=== PATIENT | female | born 1970 | race African-American/Black ===

== ENCOUNTER 2016-12-24 00:57 | Emergency (ER) | payer MEDICAID ==
[~2016-12-24] VITALS: Ht 170.2 cm; Wt 86.6 kg
[2016-12-24 01:24] LABS: Urine RBC None Seen /hpf (0 - 4)
[2016-12-24 01:27] LABS: Basophils # (auto) 0.1 uL; Basophils % (auto) 0.5 % (0.0-2.0); CONDITION Y; Eosinophils # (auto) 0.4 uL; Eosinophils % (auto) 3.9 % (0.0-7.0); Hematocrit 38.3 % (36.0-46.0); Hemoglobin 12.5 g/dL (12.2-16.2); Lymphocytes # (auto) 2.7 uL; Lymphocytes % (auto) 26.3 % (10.0-50.0); Mean Corpuscular Hgb Conc. 32.7 g/dL (32.0-36.0); Mean Corpuscular Volume 85.7 fL (80.0-100.0); Mean Platelet Volume 8.2 fL (7.4-10.4); Monocytes % (auto) 10.1 % (0.0-12.0); Neutrophils % (auto) 59.2 % (37.0-80.0); Platelet Count (auto) 421 10^3/uL (140-450); Red Cell Distribution Width 14.4 % (11.6-16.0); White Blood Cell 10.1 10^3/uL (4.4-10.8)
[2016-12-24 01:32] LABS: Urine Bilirubin Negative (Negative); Urine Blood Negative /uL (Negative); Urine Color Colorless (Yellow); Urine Glucose Normal (Normal); Urine Ketone Negative (Negative); Urine Nitrite Negative (Negative); Urine Urobilinogen Normal (Negative); Urine pH 6.5 (5.0-8.0)
[2016-12-24 01:46] LABS: Albumin 3.5 g/dL (3.4-5.0); Anion Gap 9 (5-15); Aspartate Aminotransferase 22 U/L (15-37); BUN/Creatinine Ratio 8.8; Blood Urea Nitrogen 5 mg/dL (7-18); Calcium 8.7 mg/dL (8.5-10.1); Carbon Dioxide 29 mmol/L (21-32); Chloride 102 mmol/L (98-107); GFR African American 146 mL/min; GFR Non-African American 121 mL/min; Glucose 100 mg/dL (74-106); Magnesium 2.2 mg/dL (1.6-2.6); Potassium 3.4 mmol/L (3.5-5.1); Sodium 140 mmol/L (136-145)
[2016-12-24 01:51] LABS: Alkaline Phosphatase 105 U/L (45-117); Bilirubin, Total 0.3 mg/dL (0.2-1.0); Total Protein 7.8 g/dL (6.4-8.2)
[2016-12-24 01:58] LABS: B-Type Natriuretic Peptide < 5 pg/mL (0-100); Temperature: 22.9 C (20.0-25.0)
[2016-12-24 03:04] VITALS: BP 121/77
== END 2016-12-24 05:16 | disposition home or self-care (01) ==
LOC: ER 00:59
DX: M54.12 Radiculopathy, cervical region (principal); F41.1 Generalized anxiety disorder; F32.9 Major depressive disorder, single episode, unspecified
CPT/HCPCS: 36415; 80053; 80307; 81001; 83735; 83880; 84484; 85025; 93005

== ENCOUNTER 2017-09-07 21:16 | Emergency (ER) | payer MEDICAID ==
[~2017-09-07] VITALS: Ht 170.2 cm; Wt 82.1 kg
[2017-09-08 01:18] VITALS: BP 121/81
== END 2017-09-08 03:00 | disposition home or self-care (01) ==
LOC: ER 21:16
DX: M54.12 Radiculopathy, cervical region (principal); Z88.1 Allergy status to other antibiotic agents
CPT/HCPCS: 73030

== ENCOUNTER 2017-11-28 13:27 | Emergency (ER) | payer MEDICAID ==
[~2017-11-28] VITALS: Ht 170.2 cm; Wt 83.9 kg
[2017-11-28 13:36] VITALS: BP 130/74
== END 2017-11-28 16:02 | disposition home or self-care (01) ==
LOC: ER 13:27
DX: L03.112 Cellulitis of left axilla (principal); Z88.1 Allergy status to other antibiotic agents

== ENCOUNTER 2019-09-17 17:34 | Emergency (ER) | payer MEDICAID ==
[~2019-09-17] VITALS: Ht 170.2 cm; Wt 88.9 kg
[2019-09-17 17:46] VITALS: BP 142/86
[2019-09-17 18:12] LABS: Urine Bacteria FEW /hpf (None Seen); Urine Blood Negative /uL (Negative); Urine Specific Gravity 1.007 (1.001-1.035); Urine WBC 9 /hpf (0 - 5)
[2019-09-17] MEDS ORDERED: cefTRIAXone SOD 1,000 MG VL IM ONE (19:30)
== END 2019-09-17 21:01 | disposition home or self-care (01) ==
LOC: ER 17:35
DX: N39.0 Urinary tract infection, site not specified (principal); Z88.1 Allergy status to other antibiotic agents
CPT/HCPCS: 81001; 96372; 99283; J0696

== ENCOUNTER 2020-11-06 10:28 | Emergency (ER) | payer MEDICAID ==
[~2020-11-06] VITALS: Ht 170.2 cm; Wt 86.6 kg
[2020-11-06 10:39] VITALS: BP 124/76
[2020-11-06] MEDS ORDERED: ONDANSETRON ODT 4 MG TAB PO ONE (11:00)
[2020-11-06] MEDS ORDERED: ACETAMINOPHEN 325 MG TAB PO ONE (11:00)
[2020-11-06 11:08] LABS: Urine Bacteria FEW /hpf (None Seen); Urine Blood Negative /uL (Negative); Urine Mucus FEW (None Seen); Urine Specific Gravity 1.018 (1.001-1.035); Urine WBC 3 /hpf (0 - 5)
[2020-11-06 11:08] LABS: Basophils # (auto) 0.1 10 ^3/uL (0-0.2); Basophils % (auto) 0.6 % (0.0-2.0); Eosinophils # (auto) 0.3 10 ^3/uL (0-0.8); Eosinophils % (auto) 3.6 % (0.0-7.0); Hematocrit 40.2 % (36.0-46.0); Hemoglobin 13.2 g/dL (12.2-16.2); Lymphocytes # (auto) 2.2 10 ^3/uL (0.4-5.4); Lymphocytes % (auto) 24.1 % (10.0-50.0); Mean Corpuscular Hemoglobin 28.3 pg (28.0-32.0); Mean Corpuscular Hgb Conc. 32.8 g/dL (32.0-36.0); Mean Corpuscular Volume 86.2 fL (80.0-100.0); Monocytes # (auto) 0.6 10 ^3/uL (0-1.3); Monocytes % (auto) 6.1 % (0.0-12.0); Neutrophils % (auto) 65.6 % (37.0-80.0); Nucleated Red Blood Cells % 0.2 %; Platelet Count (auto) 309 10^3/uL (140-450); Red Blood Cells 4.66 10^6/uL (4.0-5.20); Red Cell Distribution Width 14.3 % (11.8-14.3); White Blood Cell 9.2 10^3/uL (4.4-10.8)
[2020-11-06 11:23] LABS: Albumin 3.6 g/dL (3.4-5.0); Anion Gap 3 (5-15); Blood Urea Nitrogen 9 mg/dL (7-18); Calcium 9.3 mg/dL (8.5-10.1); Carbon Dioxide 32 mmol/L (21-32); Chloride 104 mmol/L (98-107); Glucose 131 mg/dL (74-106); Potassium 3.8 mmol/L (3.5-5.1); Sodium 139 mmol/L (136-145)
[2020-11-06 11:29] LABS: Alanine Aminotransferase 38 U/L (13-56); Alkaline Phosphatase 99 U/L (45-117); Aspartate Aminotransferase 26 U/L (15-37); Bilirubin, Total 0.3 mg/dL (0.2-1.0); GFR African American 136 mL/min; GFR Non-African American 112 mL/min; Total Protein 7.9 g/dL (6.4-8.2)
== END 2020-11-06 12:22 | disposition home or self-care (01) ==
LOC: ER 10:28
DX: I16.0 Hypertensive urgency (principal); E11.9 Type 2 diabetes mellitus without complications; E78.5 Hyperlipidemia, unspecified; Z90.710 Acquired absence of both cervix and uterus; Z88.1 Allergy status to other antibiotic agents
CPT/HCPCS: 36415; 70450; 80053; 81001; 84484; 85025; 93005; 99285; Q0162

== ENCOUNTER 2022-07-28 05:21 | Emergency (ER) | payer MEDICAID ==
[~2022-07-28] VITALS: Ht 170.2 cm; Wt 90.0 kg
[2022-07-28] MEDS ORDERED: DICYCLOMINE HCL 10 MG CAP PO ONE (06:30)
[2022-07-28 06:40] LABS: Basophils # (auto) 0 10 ^3/uL (0-0.2); Basophils % (auto) 0.3 % (0.0-2.0); Eosinophils # (auto) 0.1 10 ^3/uL (0-0.8); Eosinophils % (auto) 0.9 % (0.0-7.0); Hematocrit 40.1 % (36.0-46.0); Hemoglobin 13.1 g/dL (12.2-16.2); Lymphocytes # (auto) 1.9 10 ^3/uL (0.4-5.4); Mean Corpuscular Hemoglobin 27.7 pg (28.0-32.0); Mean Corpuscular Hgb Conc. 32.8 g/dL (32.0-36.0); Mean Corpuscular Volume 84.4 fL (80.0-100.0); Monocytes # (auto) 0.6 10 ^3/uL (0-1.3); Monocytes % (auto) 6.4 % (0.0-12.0); Neutrophils # (auto) 6.9 10 ^3/uL (1.6-8.6); Neutrophils % (auto) 72.4 % (37.0-80.0); Red Blood Cells 4.75 10^6/uL (4.0-5.20); Red Cell Distribution Width 14.5 % (11.8-14.3); White Blood Cell 9.6 10^3/uL (4.4-10.8)
[2022-07-28 06:41] LABS: Urine Bacteria MOD /hpf (None Seen); Urine Blood Negative /uL (Negative); Urine Mucus FEW (None Seen); Urine Specific Gravity 1.011 (1.001-1.035); Urine WBC 6 /hpf (0 - 5)
[2022-07-28 06:52] LABS: Albumin 3.8 g/dL (3.4-5.0); Potassium 3.5 mmol/L (3.5-5.1)
[2022-07-28 06:55] LABS: BUN/Creatinine Ratio 7.9; Bilirubin, Total 0.4 mg/dL (0.2-1.0); Total Protein 7.6 g/dL (6.4-8.2)
[2022-07-28] MEDS ORDERED: HYDROcodone-ACET 10/325MG TAB PO ONE (07:45)
[2022-07-28] MEDS ORDERED: HYDROmorphone HCL 2 MG/ML VL/or syr IM ONE (08:30)
[2022-07-28 08:41] VITALS: BP 122/74
[2022-07-28] MEDS ORDERED: PHENSUP38 PR (10:01)
[2022-07-28] MEDS ORDERED: DOCU-94 PO (10:52)
[2022-07-29 08:44] LABS: Hepatitis B Surface Antibody Negative (Negative)
[2022-07-29 09:21] LABS: Hepatitis A Total Antibody Negative (Negative)
[2022-07-29 09:59] LABS: Hepatitis C Antibody Negative (Negative)
== END 2022-07-28 10:09 | disposition home or self-care (01) ==
LOC: ER 05:21
DX: K76.0 Fatty (change of) liver, not elsewhere classified (principal); M54.50 Low back pain, unspecified; E11.9 Type 2 diabetes mellitus without complications; E78.5 Hyperlipidemia, unspecified; Z90.710 Acquired absence of both cervix and uterus; Z88.1 Allergy status to other antibiotic agents
CPT/HCPCS: 36415; 74176; 80053; 81001; 83690; 85025; 86704; 86706; 86708; 86803; 87340; 96372; 99285; J0500; J1170

== ENCOUNTER 2024-11-05 13:21 | Emergency (ER) | payer MEDICAID, OTHER ==
[~2024-11-05] VITALS: Ht 170.2 cm; Wt 83.3 kg
[~2024-11-05 13:21] MED LIST: DOCU-94 PO; PHENSUP38 PR
[2024-11-05 14:06] VITALS: BP 127/49; PULSE 65; RESP 17; TEMP 97.9; O2SAT 96
--- NOTE | 2024-11-05 14:22 | ED.PDOC ---
Musculoskeletal HPI Comments A 54 YEAR OLD FEMALE PRESENTS TO THE ED WITH COMPLAINT OF LEFT SHOULDER PAIN. PATIENT STATES SHE HAS BEEN EXPERIENCING LEFT SHOULDER PAIN THAT IS WORSE WITH MOVEMENT OFF AND ON FOR THE PAST 6 MONTHS WITH WORSENING PAIN TODAY. PATIENT DENIES INJURY TO THE AFFECTED AREA, FEVER, CHILLS, SHORTNESS OF BREATH, CHEST PAIN, ABDOMINAL PAIN, NAUSEA, VOMITING, HEADACHE, OR OTHER COMPLAINTS. NO OTHER SYMPTOMS OR MODIFYING FACTORS AT THIS TIME. PATIENT IS ALERT, ORIENTED X 4, AND HAS STEADY GAIT. Chief Complaint: Upper Extremity Time Seen by MD: 13:48 Primary Care Provider: SHENA Joya Notes: Nurses Notes, Medications, Allergies Allergies: Coded Allergies: Amoxicillin (Verified Allergy, Unknown, 12/24/16) Home Meds Active Scripts Docusate Sodium (Colace) 100 Mg Cap, 1 CAP PO BID, #30 CAP Prov:HONG VARELA PAC 07/28/22 Phenylephrine-Shark Liver Oil- (Hemorrhoidal Suppositorie 0.25-3-85.5 %) 1 Sup Sup, 1 SUP PA TID, #20 SUPP Prov:HONG VARELA PAC 07/28/22 Information Source: Patient Mode of Arrival: Ambulatory Location: Left Extremity Location: Shoulder Timing: Months Prehospital treatment: None Severity: Moderate Able to Move Extremity: Yes Bear Weight: Fully Pain: Moderate Mechanism: No Trauma, Spontaneous Circumstances: Spontaneous Onset of Symptoms: Spontaneous Symptoms: Pain DVT Risk Factors: NONE Last Tetanus: Unknown Associated signs and symptoms: Shoulder pain Past Medical History PAST MEDICAL HISTORY: DM, High Lipids Past Medical History (Other): CHRONIC LOW BACK PAIN Surgical History: Hysterectomy AMF MECHANIC History: No Pertinent AMF MECHANIC History Family History Family History: Reviewed,noncontributory to illness, Family hx of DM, Family hx of heart sky, Family hx of HTN Social History Smoker: Non-Smoker Alcohol: Denies ETOH Use Drugs: Denies Drug Use Lives In: Home Constitutional: denies: chills, diaphoresis, fatigue, fever, malaise, sweats, weakness, others EENTM: denies: blurred vision, double vision, ear bleeding, ear discharge, ear drainage, ear pain, ear ringing, eye pain, eye redness, hearing loss, mouth pain, mouth swelling, nasal discharge, nose bleeding, nose congestion, nose pain, photophobia, tearing, throat pain, throat swelling, voice changes, others Respiratory: denies: cough, hemoptysis, orthopnea, SOB at rest, shortness of breath, SOB with excertion, stridor, wheezing, others Cardiovascular: denies: chest pain, dizzy spells, diaphoresis, Dyspnea on exertion, edema, irregular heart beat, left arm pain, lightheadedness, palpitations, PND, syncope, others Gastrointestinal: denies: abdomen distended, abdominal pain, blood streaked bowels, constipated, diarrhea, dysphagia, difficulty swallowing, hematemesis, melena, nausea, poor appetite, poor fluid intake, rectal bleeding, rectal pain, vomiting, others Genitourinary: denies: abnormal vagina bleeding, burning, dyspareunia, dysuria, flank pain, frequency, hematuria, incontinence, pain, , vagina discharge, urgency, others Neurological: denies: dizziness, fainting, headache, left sided numbness, left sided weakness, numbness, paresthesia, pre-existing deficit, right sided numbness, right sided weakness, seizure, speech problems, tingling, tremors, weakness, others Musculoskeletal: reports: joint pain, muscle pain, others (LEFT SHOULDER PAIN); denies: back pain, gout, joint swelling, muscle stiffness, neck pain Integumetry: denies: bruises, change in color, change in hair/nails, dryness, laceration, lesions, lumps, rash, wounds, others Allergic/Immunocompromised: denies: Difficulty Healing, Frequent Infections, Hives, Itching, others Hematologic/Lymphatic: denies: anemia, blood clots, easy bleeding, easy bruising, swollen glands, others Endocrine: denies: excessive hunger, excessive sweating, excessive thirst, excessive urination, flushing, intolerance to cold, intolerance to heat, unexplained weight gain, unexplained weight loss, others Psychiatric: denies: anxiety, bipolar disorder, depression, hopeless, panic disorder, schizophrenia, sleepless, suicidal, others All Other Systems: Reviewed and Negative Physical Exam General Appearance: No Apparent Distress, Normal HEENT: Normal ENT Inspection, PERRL/EOMI, Pharynx Normal, TMs Normal Neck: Full Range of Motion, Non-Tender, Normal, Normal Inspection Respiratory: Chest Non-Tender, Lungs Clear, No Accessory Muscle Use, No Respiratory Distress, Normal Breath Sounds Cardiovascular: No Edema, No JVD, No Murmur, No Gallop, Normal Peripheral Pulses, Regular Rate/Rhythm Breast Exam: Deferred Gastrointestinal: No Organomegaly, Non Tender, No Pulsatile Mass, Normal Bowel Sounds, Soft Genitalia: Deferred Pelvic: Deferred Rectal: Deferred Extremities: Decreased range of motion, No calf tenderness, Normal capillary refill, Normal inspection, No pedal edema, Tender (ON LEFT SHOULDER, NO BONY TENDERNESS, SWELLING AND DEFOERMITY. ) Musculoskeletal : Apperance: Normal Neurologic: Alert, bank vault attendant II-XII nml as Tested, No Motor Deficits, Normal Affect, Normal Mood, No Sensory Deficits Cerebellar Function: Normal Reflexes: Normal Skin: Dry, Normal Color, Warm Peripheral Pulses: 2+ carotid (R), 2+ carotid (L) Lymphatic: No Adenopathy Was a procedure done? Was a procedure done?: No Differential Diagnosis EXT Differential Diagnosis: Sprain, DJD, Strain, Arthritis, Bursitis X-Ray, Labs, Meds, VS Vital Signs Date Time Temp Pulse Resp B/P (MAP) Pulse Ox O2 Delivery O2 Flow Rate FiO2 11/05/24 14:06 97.9 65 17 127/49 (75) 96 97.9 11/05/24 14:06 65 17 96 Room Air 11/05/24 13:57 97.9 65 17 127/49 (75) 96 97.9 X-Ray, Labs, Meds, VS Comment EXTERNAL MEDICAL RECORDS REVIEWED: [NONE] INDEPENDENT HISTORIANS: [NONE] SOCIAL DETERMINANTS OF HEALTH: [NONE] LABS ORDERED: NONE REVIEWED AND INTERPRETED RESULTS: NONE IMAGING ORDERED: XR SHOULDER LT: [INTERPRETED BY ME. NO ACUTE FINDINGS. NO FRACTURES OR DISLOCATION. PENDING RADIOLOGIST REPORT.] TREATMENTS ORDERED: NONE PROCEDURES PERFORMED: NONE CRITICAL CARE TIME: NONE I HAVE DISCUSSED THE PATIENT WITH THE ATTENDING PHYSICIAN DR. HEIN AND HE AGREES WITH THE PATIENT'S PLAN OF CARE AND DISPOSITION. BASED ON HISTORY OF PRESENT ILLNESS, AND PHYSICAL EXAM, PATIENT WILL BE DISCHARGED HOME. PT HAS MORPHINE MEDICATION AT HOME. SHARED DECISION MAKING: PATIENT INSTRUCTED TO FOLLOW UP WITH PRIMARY CARE PROVIDER IN 1-2 DAYS FOR RE-EVALUATION OF SYMPTOMS. PATIENT VERBALIZES UNDERSTANDING TO RETURN TO ED FOR NEW OR WORSENING SYMPTOMS OR IF FOLLOW UP WITH PCP CANNOT BE OBTAINED. PATIENT FEELS COMFORTABLE GOING HOME AT THIS TIME. ALL QUESTIONS ADDRESSED AT TIME OF DISCHARGE. Images Reviewed?: Images reviewed and evaluated by me Time of 1ST Reevaluation: 14:44 Reevaluation 1ST: Improved Patient Education/Counseling: Diagnosis, Treatment, Need For Follow Up Family Education/Counseling: Diagnosis, Treatment, Need For Follow Up Medical Screening: No EMC Exist At This Time Departure 1 Departure Time of Disposition: 14:45 Impression: Primary Impression: Tendinitis of left shoulder Disposition: 01 HOME / SELF CARE / HOMELESS Condition: Stable Additional Instructions: FOLLOW-UP WITH PCP IN 1 TO 2 DAYS. RETURN TO ED FOR ANY NEW OR WORSENING SYMPTOMS. Discharged With: Self Critical Care Note Critical Care Time?: No Stability Stability form required: No I personally scribed for YOLIS MEJIAS ([email or web address]) on 11/05/24 at 14:22. Electronically submitted by Mario Marin ([email or web address]). I personally scribed for YOLIS MEJIAS ([email or web address]) on 11/05/24 at 14:37. Electronically submitted by Mario Marin ([email or web address]). YOLIS MEJIAS November 05, 2024 14:22
--- NOTE | 2024-11-05 15:17 | DVH ---
EXAM: XR Left Shoulder Complete, 2 or More Views CLINICAL INDICATION: PAIN, NO INJURY TECHNIQUE: Two or more views of the left shoulder. COMPARISON: None FINDINGS: BONES/JOINTS: Small calcific density adjacent to the greater tuberosity could be tendinopathy or av ulsion fracture. Correlation with point tenderness is recommended. No dislocation. SOFT TISSUES: Unremarkable. OTHER FINDINGS: . IMPRESSION: Small calcific density adjacent to the greater tuberosity could be tendinopathy or avulsion fracture . Correlation with point tenderness is recommended.
[2024-11-06] MEDS ORDERED: TIZA-142 PO (06:06)
[2024-11-06] MEDS ORDERED: METH4PAK PO (06:06)
== END 2024-11-05 14:38 | disposition home or self-care (01) ==
LOC: ER 13:21
DX: M77.8 Other enthesopathies, not elsewhere classified (principal); E11.9 Type 2 diabetes mellitus without complications; E78.5 Hyperlipidemia, unspecified; G89.29 Other chronic pain; Z90.710 Acquired absence of both cervix and uterus; Z88.1 Allergy status to other antibiotic agents
CPT/HCPCS: 73030

== ENCOUNTER 2024-11-06 03:42 | Emergency (ER) | payer OTHER ==
[~2024-11-06] VITALS: Ht 170.2 cm; Wt 82.2 kg
--- NOTE | 2024-11-06 04:32 | ED.PDOC ---
Back pain HPI HPI Comments Pt presents to the ER due to lft shoulder pain. Pt states she was seen on 11/05/24 at this facility and states she was discharged with diagnosis of tendonitis. Pt requesting to have MRI done, pt educated on process of MRI referrals. Pt reports she was seeing a specialist x1 year ago for shoulder pain and receiving Cortisone shots. Pt states sudden onset of pain that she rates as being 10/10. Denies taking any home medications for pain. CSM intact, imited ROM. Chief Complaint: Upper Extremity Time Seen by MD: 04:27 Primary Care Provider: Dr. Adams Reviewed Notes: Nurses Notes, Medications, Allergies Allergies: Coded Allergies: Amoxicillin (Verified Allergy, Unknown, 12/24/16) Home Meds Active Scripts Methylprednisolone (Medrol Dosepak) 4 Mg Joaquin, 4 MG PO UD for 6 Days, #21 TAB UAD Prov:JENISE COSTA [facility] 11/06/24 Tizanidine Hydrochloride (Tizanidine Hcl) 4 Mg Tab, 4 MG PO HS PRN for 6 Days, #6 TAB Prov:JENISE COSTA [employer] 11/06/24 Docusate Sodium (Colace) 100 Mg Cap, 1 CAP PO BID, #30 CAP Prov:HONG VARELA PAC 07/28/22 Phenylephrine-Shark Liver Oil- (Hemorrhoidal Suppositorie 0.25-3-85.5 %) 1 Sup Sup, 1 SUP RI TID, #20 SUPP Prov:HONG VARELA PAC 07/28/22 Mode of Arrival: Ambulatory Past Medical History PAST MEDICAL HISTORY: DM, High Lipids Surgical History: Hysterectomy PEDIATRIC ACUTE CARE UNIT NURSE History: No Pertinent PEDIATRIC ACUTE CARE UNIT NURSE History Family History Family History: Reviewed,noncontributory to illness, Family hx of DM, Family hx of heart sky, Family hx of HTN Social History Smoker: Non-Smoker Alcohol: Denies ETOH Use Drugs: Denies Drug Use Lives In: Home Constitutional: denies: chills, diaphoresis, fatigue, fever, malaise, sweats, weakness, others EENTM: denies: blurred vision, double vision, ear bleeding, ear discharge, ear drainage, ear pain, ear ringing, eye pain, eye redness, hearing loss, mouth pain, mouth swelling, nasal discharge, nose bleeding, nose congestion, nose pain, photophobia, tearing, throat pain, throat swelling, voice changes, others Respiratory: denies: cough, hemoptysis, orthopnea, SOB at rest, shortness of breath, SOB with excertion, stridor, wheezing, others Cardiovascular: denies: chest pain, dizzy spells, diaphoresis, Dyspnea on exertion, edema, irregular heart beat, left arm pain, lightheadedness, pal pitations, PND, syncope, others Gastrointestinal: denies: abdomen distended, abdominal pain, blood streaked bowels, constipated, diarrhea, dysphagia, difficulty swallowing, hematemesis, melena, nausea, poor appetite, poor fluid intake, rectal bleeding, rectal pain, vomiting, others Genitourinary: denies: abnormal vagina bleeding, burning, dyspareunia, dysuria, flank pain, frequency, hematuria, incontinence, pain, , vagina discharge, urgency, others Neurological: denies: dizziness, fainting, headache, left sided numbness, left sided weakness, numbness, paresthesia, pre-existing deficit, right sided numbness, right sided weakness, seizure, speech problems, tingling, tremors, weakness, others Musculoskeletal: reports: joint pain (LEFT SHOULDER ); denies: back pain, gout, joint swelling, muscle pain, muscle stiffness, neck pain, others Integumetry: denies: bruises, change in color, change in hair/nails, dryness, laceration, lesions, lumps, rash, wounds, others Allergic/Immunocompromised: denies: Difficulty Healing, Frequent Infections, Hives, Itching, others Hematologic/Lymphatic: denies: anemia, blood clots, easy bleeding, easy bruising, swollen glands, others Endocrine: denies: excessive hunger, excessive sweating, excessive thirst, excessive urination, flushing, intolerance to cold, intolerance to heat, unexpla ined weight gain, unexplained weight loss, others Psychiatric: denies: anxiety, bipolar disorder, depression, hopeless, panic disorder, schizophrenia, sleepless, suicidal, others Physical Exam General Appearance: No Apparent Distress, Normal HEENT: Pharynx Normal Neck: Full Range of Motion, Non-Tender Respiratory: Lungs Clear, No Respiratory Distress, Normal Breath Sounds Cardiovascular: No Murmur, Normal Peripheral Pulses, Regular Rate/Rhythm Breast Exam: Deferred Gastrointestinal: Non Tender, Soft Genitalia: Deferred Pelvic: Deferred Rectal: Deferred Extremities: Normal capillary refill, Normal inspection, Normal range of motion, Non-tender, No pedal edema Musculoskeletal : Location: Left Extremity Location: Shoulder (MODERATE TENDERNESS PALPATED OVER SHOULDER GIRDLE STRENGTH SENSORY MOTION INTACT FULL RANGE OF MOTION WITH MODERATE DISCOMFORT POSITIVE RADIAL PULSE) Apperance: Normal Neurologic: Alert, deputy commonwealth's attorney II-XII nml as Tested, No Motor Deficits, Normal Affect, Normal Mood, No Sensory Deficits Cerebellar Function: Normal Reflexes: Normal Skin: Dry, Normal Color, Warm Lymphatic: No Adenopathy Was a procedure done? Was a procedure done?: No Back Pain Differential Dx Differential Diagnosis: Fracture, Musculoskeletal Pain X-Ray, Labs, Meds, VS Vital Signs Date Time Temp Pulse Resp B/P (MAP) Pulse Ox O2 Delivery O2 Flow Rate FiO2 11/06/24 05:21 98.5 52 16 125/70 (88) 98 98.5 11/06/24 04:52 97.4 64 18 139/58 (85) 97 97.4 11/06/24 04:52 64 18 97 Room Air 11/06/24 04:05 97.4 64 18 139/58 (85) 97 97.4 Current Medications Medications (Trade) Dose Ordered Sig/[place] Start Time Stop Time Status Last Admin Ketorolac Tromethamine (Toradol Injection) 60 mg ONCE ONCE IM 11/06/24 04:45 11/06/24 04:46 DC 11/06/24 05:23 Dexamethasone Sodium Phosphate (Decadron Injection) 10 mg ONCE ONCE IM 11/06/24 04:45 11/06/24 04:46 DC 11/06/24 05:21 X-Ray, Labs, Meds, VS Comment This patient was signed out to me at the end of shift. Patient with history of pain in the shoulder questionable fracture on x-ray. CT does not show any avulsion fracture at this time. Patient will be sent home on muscle relaxers and steroids. Encouraged to follow up with her primary care doctor for physical therapy if indicated. HISTORY: xRAY RESULT TENDONITIS vs AVULSION FX SEVERE PAIN COMPARISON: 11/05/2024 TECHNIQUE: Noncontrast axial CT images of the left shoulder were performed. Sagittal and coronal reformatted images were obtained. This CT exam was performed using one or more of the following dose reduction techniques: Automated exposure control, adjustment of the mA and/or kV according to patient size, or use of iterative reconstruction technique. FINDINGS: No acute fracture or dislocation are identified about the left shoulder. No significant degenerative changes. Subacromial space is maintained. Previously noted small calcific density is within the tendon and does not represent avulsion fracture. Mild degenerative changes of the glenohumeral joint with joint space narrowing and inferior spurring. IMPRESSION: 1. Previously noted small calcific density is within the tendon and does not represent avulsion fracture. Mild degenerative changes of the glenohumeral joint with joint space narrowing and inferior spurring. Time of 1ST Reevaluation: 04:20 Reevaluation 1ST: Unchanged Time of 2ND Reevaluation: 06:44 Reevaluation 2ND: Improved Patient Education/Counseling: Diagnosis, Treatment, Prognosis, Need For Follow Up Family Education/Counseling: No Family Present Departure 1 Departure Time of Disposition: 06:45 Impression: Primary Impression: Tendinitis of left shoulder Disposition: 01 HOME / SELF CARE / HOMELESS Condition: Stable e-Prescriptions Methylprednisolone (Medrol Dosepak) 4 Mg Joaquin 4 MG PO UD for 6 Days, #21 TAB UAD Prov: JENISE COSTA [facility] 11/06/24 Tizanidine Hydrochloride (Tizanidine Hcl) 4 Mg Tab 4 MG PO HS PRN for 6 Days, #6 TAB Prov: JENISE COSTA [facility] 11/06/24 Discharged With: Self Critical Care Note Critical Care Time?: No Stability Stability form required: No JENISE COSTA [facility] November 06, 2024 04:[address] [facility] November 06, 2024 06:45
[2024-11-06 05:21] VITALS: BP 125/70; PULSE 52; RESP 16; TEMP 98.5; O2SAT 98
[2024-11-06] MEDS: DexAMETHasone SOD PHOS 10MG/1ML VIAL INJ IM ONE (05:21)
[2024-11-06] MEDS: KETOROLAC TROMETH 60MG/2ML VIAL IM ONE (05:23)
[2024-11-06] MEDS ORDERED: TIZA-142 PO (06:06)
[2024-11-06] MEDS ORDERED: METH4PAK PO (06:06)
--- NOTE | 2024-11-06 06:37 | DVH ---
EXAM: CT CT L SHOULDER WO CONTRAST HISTORY: xRAY RESULT TENDONITIS vs AVULSION FX SEVERE PAIN COMPARISON: 11/05/2024 TECHNIQUE: Noncontrast axial CT images of the left shoulder were performed. Sagittal and coronal refo rmatted images were obtained. This CT exam was performed using one or more of the following dose redu ction techniques: Automated exposure control, adjustment of the mA and/or kV according to patient siz e, or use of iterative reconstruction technique. FINDINGS: No acute fracture or dislocation are identified about the left shoulder. No significant deg enerative changes. Subacromial space is maintained. Previously noted small calcific density is within the tendon and does not represent avulsion fracture. Mild degenerative changes of the glenohumeral j oint with joint space narrowing and inferior spurring. IMPRESSION: 1. Previously noted small calcific density is within the tendon and does not represent avulsion fract ure. Mild degenerative changes of the glenohumeral joint with joint space narrowing and inferior spur ring.
== END 2024-11-06 06:48 | disposition home or self-care (01) ==
LOC: ER 03:42
DX: M75.92 Shoulder lesion, unspecified, left shoulder (principal); E11.9 Type 2 diabetes mellitus without complications; E78.5 Hyperlipidemia, unspecified; Z90.710 Acquired absence of both cervix and uterus; Z88.0 Allergy status to penicillin
CPT/HCPCS: 73200; 96372; 99285; J1100; J1885

== ENCOUNTER 2025-05-12 10:37 | Emergency (ER) | payer OTHER ==
[~2025-05-12] VITALS: Ht 170.2 cm; Wt 79.1 kg
[2025-05-12 10:55] VITALS: BP 132/82; PULSE 79; RESP 16; TEMP 98.4; O2SAT 100
--- NOTE | 2025-05-12 11:00 | ED.PDOC ---
Musculoskeletal HPI Comments A 55 YEAR OLD FEMALE PRESENTS TO THE ED WITH COMPLAINT OF LEFT ANKLE PAIN AND SWELLING. PATIENT STATES SHE ACCIDENTALLY ROLLED HER LEFT ANKLE AT A [place] 6 DAYS AGO. PATIENT REPORTS SHE HAS BEEN EXPERIENCING LEFT ANKLE PAIN WITH SWELLING A RESULT OF THIS INJURY FOR THE PAST 6 DAYS. PATIENT IS ABLE TO WALK AND BEAR WEIGHT WITH A STABLE GAIT. PATIENT DENIES FEVER, CHILLS, SHORTNESS OF BREATH, CHEST PAIN, ABDOMINAL PAIN, NAUSEA, VOMITING, HEADACHE, OR OTHER COMPLAINTS. NO OTHER SYMPTOMS OR MODIFYING FACTORS AT THIS TIME. PATIENT IS ALERT, ORIENTED X 4, AND HAS STEADY GAIT. Chief Complaint: Lower Extremity Time Seen by MD: 10:44 Primary Care Provider: Dr. Adams Reviewed Notes: Nurses Notes, Medications, Allergies Allergies: Coded Allergies: Amoxicillin (Verified Allergy, Unknown, 12/24/16) Home Meds Active Scripts Docusate Sodium (Colace) 100 Mg Cap, 1 CAP PO BID, #30 CAP Prov:HONG VARELA PAC 07/28/22 Phenylephrine-Shark Liver Oil- (Hemorrhoidal Suppositorie 0.25-3-85.5 %) 1 Sup Sup, 1 SUP ME TID, #20 SUPP Prov:HONG VARELA PAC 07/28/22 Information Source: Patient Mode of Arrival: Ambulatory Location: Left Extremity Location: Ankle Timing: Days Prehospital treatment: None Severity: Moderate Able to Move Extremity: Yes Bear Weight: Fully Pain: Moderate Mechanism: Twisting Circumstances: Accident Onset of Symptoms: After Trauma Symptoms: Swelling, Pain DVT Risk Factors: NONE Last Tetanus: Unknown Associated signs and symptoms: Ankle pain Past Medical History PAST MEDICAL HISTORY: DM, GERD, High Lipids Surgical History: Hysterectomy INDUSTRIAL SALES ENGINEER History: No Pertinent INDUSTRIAL SALES ENGINEER History Family History Family History: Reviewed,noncontributory to illness, Family hx of DM, Family hx of heart sky, Family hx of HTN Social History Smoker: Non-Smoker Alcohol: Denies ETOH Use Drugs: Denies Drug Use Lives In: Home Constitutional: denies: chills, diaphoresis, fatigue, fever, malaise, sweats, weakness, others EENTM: denies: blurred vision, double vision, ear bleeding, ear discharge, ear drainage, ear pain, ear ringing, eye pain, eye redness, hearing loss, mouth pain, mouth swelling, nasal discharge, nose bleeding, nose congestion, nose pain, photophobia, tearing, throat pain, throat swelling, voice changes, others Respiratory: denies: cough, hemoptysis, orthopnea, SOB at rest, shortness of breath, SOB with excertion, stridor, wheezing, others Cardiovascular: denies: chest pain, dizzy spells, diaphoresis, Dyspnea on exertion, edema, irregular heart beat, left arm pain, lightheadedness, palpitations, PND, syncope, others Gastrointestinal: denies: abdomen distended, abdominal pain, blood streaked bowels, constipated, diarrhea, dysphagia, difficulty swallowing, hematemesis, melena, nausea, poor appetite, poor fluid intake, rectal bleeding, rectal pain, vomiting, others Genitourinary: denies: abnormal vagina bleeding, burning, dyspareunia, dysuria, flank pain, frequency, hematuria, incontinence, pain, , vagina discharge, urgency, others Neurological: denies: dizziness, fainting, headache, left sided numbness, left sided weakness, numbness, paresthesia, pre-existing deficit, right sided numbness, right sided weakness, seizure, speech problems, tingling, tremors, weakness, others Musculoskeletal: reports: joint pain, joint swelling, others (LEFT ANKLE PAIN AND SWELLING); denies: back pain, gout, muscle pain, muscle stiffness, neck pain Integumetry: denies: bruises, change in color, change in hair/nails, dryness, laceration, lesions, lumps, rash, wounds, others Allergic/Immunocompromised: denies: Difficulty Healing, Frequent Infections, Hives, Itching, others Hematologic/Lymphatic: denies: anemia, blood clots, easy bleeding, easy bruising, swollen glands, others Endocrine: denies: excessive hunger, excessive sweating, excessive thirst, excessive urination, flushing, intolerance to cold, intolerance to heat, unexplained weight gain, unexplained weight loss, others Psychiatric: denies: anxiety, bipolar disorder, depression, hopeless, panic disorder, schizophrenia, sleepless, suicidal, others All Other Systems: Reviewed and Negative Physical Exam General Appearance: No Apparent Distress, Normal HEENT: Normal ENT Inspection, PERRL/EOMI, Pharynx Normal, TMs Normal Neck: Full Range of Motion, Non-Tender, Normal, Normal Inspection Respiratory: Chest Non-Tender, Lungs Clear, No Accessory Muscle Use, No Respiratory Distress, Normal Breath Sounds Cardiovascular: No Edema, No JVD, No Murmur, No Gallop, Normal Peripheral Pulses, Regular Rate/Rhythm Breast Exam: Deferred Gastrointestinal: No Organomegaly, Non Tender, No Pulsatile Mass, Normal Bowel Sounds, Soft Genitalia: Deferred Pelvic: Deferred Rectal: Deferred Extremities: Decreased range of motion, No calf tenderness, Normal capillary refill, No pedal edema, Swelling (BONY TENDERNESS AND SWELLING ON LEFT ANKLE, NO DEFORMITY. ), Tender (AND SWELLING ON LEFT ANKLE. ) Musculoskeletal : Apperance: Normal Neurologic: Alert, community cultural development officer II-XII nml as Tested, No Motor Deficits, Normal Affect, Normal Mood, No Sensory Deficits Cerebellar Function: Normal Reflexes: Normal Skin: Dry, Normal Color, Warm Peripheral Pulses: 2+ carotid (R), 2+ carotid (L), 2+ dorsalis pedis (R), 2+ dorsalis pedis (L) Lymphatic: No Adenopathy Was a procedure done? Was a procedure done?: No Sedation Sedation?: No Differential Diagnosis EXT Differential Diagnosis: Fracture, Sprain, Dislocation, Contusion, Strain, Bursitis X-Ray, Labs, Meds, VS Vital Signs Date Time Temp Pulse Resp B/P (MAP) Pulse Ox O2 Delivery O2 Flow Rate FiO2 05/12/25 10:55 79 16 100 Room Air 05/12/25 10:55 98.4 79 16 132/82 (99) 100 98.4 05/12/25 10:39 97.4 84 16 132/82 100 97.4 ORDERING PHYSICIAN: YOLIS MEJIAS PROCEDURE(s): LANKL - L ANKLE 3 VIEW REASON: INJURY X 6 DAYS ORDER NUMBER(s): [id number], ACCESSION NUMBER(s): [id number] CLINICAL INDICATION: Pain TECHNIQUE: 3 radiographic views of the left ankle were obtained. Comparison: None FINDINGS/IMPRESSION: Nondisplaced fracture of the distal fibula. ATED BY: LEXIE SHEA MD DICTATED DATE/TIME: 05/12/251121 SIGNED BY: LEXIE SHEA MD SIGNED DATE/TIME: 05/12/251121 CC: X-Ray, Labs, Meds, VS Comment EXTERNAL MEDICAL RECORDS REVIEWED: [NONE] INDEPENDENT HISTORIANS: [NONE] SOCIAL DETERMINANTS OF HEALTH: [NONE] LABS ORDERED: NONE REVIEWED AND INTERPRETED RESULTS: NONE IMAGING ORDERED: XR ANKLE LT TREATMENTS ORDERED: ANKLE STIRRUP SPLINT APPLIED TO PATIENT'S LEFT ANKLE. PROCEDURES PERFORMED: NONE CRITICAL CARE TIME: NONE I HAVE DISCUSSED THE PATIENT WITH THE ATTENDING PHYSICIAN DR. RIVAS AND HE AGREES WITH THE PATIENT'S PLAN OF CARE AND DISPOSITION. BASED ON HISTORY OF PRESENT ILLNESS, AND PHYSICAL EXAM, PATIENT WILL BE DISCHARGED HOME. DISCUSSED PLAN FOR DISCHARGE HOME WITH RX []. MEDICATION WARNINGS GIVEN. SHARED DECISION MAKING: DISCUSSED WITH PATIENT THAT THEIR WORKUP WAS NORMAL. PATIENT INSTRUCTED TO FOLLOW UP WITH PRIMARY CARE PROVIDER IN 1-2 DAYS FOR RE- EVALUATION OF SYMPTOMS. PATIENT VERBALIZES UNDERSTANDING TO RETURN TO ED FOR NEW OR WORSENING SYMPTOMS OR IF FOLLOW UP WITH PCP CANNOT BE OBTAINED. PATIENT FEELS COMFORTABLE GOING HOME AT THIS TIME. ALL QUESTIONS ADDRESSED AT TIME OF DISCHARGE. Images Reviewed?: Images reviewed and evaluated by me Time of 1ST Reevaluation: 12:41 Reevaluation 1ST: Improved Patient Education/Counseling: Diagnosis, Treatment, Need For Follow Up Family Education/Counseling: Diagnosis, Treatment, Need For Follow Up Medical Screening: No EMC Exist At This Time Departure 1 Departure Time of Disposition: 12:41 Impression: Primary Impression: Closed fracture of left distal fibula Qualified Codes: S82.832A - Other fracture of upper and lower end of left fibula, initial encounter for closed fracture Disposition: 01 HOME / SELF CARE / HOMELESS Condition: Stable Additional Instructions: FOLLOW-UP WITH PCP IN 1 TO 2 DAYS FOR REFERRAL TO FINISHING MANAGER. TAKE MEDICATIONS PRESCRIBED. RETURN TO ED FOR ANY NEW OR WORSENING SYMPTOMS. Discharged With: Self, Relative Critical Care Note Critical Care Time?: No Stability Stability form required: No I personally scribed for YOLIS MEJIAS ([email or web address]) on 05/12/25 at 11:00. Electronically submitted by Mario Marin ([email or web address]). I personally scribed for YOLIS MEJIAS ([email or web address]) on 05/12/25 at 11:31. Electronically submitted by Mario Marin ([email or web address]). YOLIS MEJIAS May 12, 2025 11:00
--- NOTE | 2025-05-12 11:25 | DVH ---
CLINICAL INDICATION: Pain TECHNIQUE: 3 radiographic views of the left ankle were obtained. Comparison: None FINDINGS/IMPRESSION: Nondisplaced fracture of the distal fibula.
== END 2025-05-12 12:21 | disposition home or self-care (01) ==
LOC: ER 10:37
DX: S82.832A Other fracture of upper and lower end of left fibula, initial encounter for closed fracture (principal); E11.9 Type 2 diabetes mellitus without complications; Z88.0 Allergy status to penicillin; Z90.710 Acquired absence of both cervix and uterus; X50.1XXA Overexertion from prolonged static or awkward postures, initial encounter; Y93.89 Activity, other specified; Y92.89 Other specified places as the place of occurrence of the external cause; Y99.8 Other external cause status
CPT/HCPCS: 29125; 29515; 73610

== ENCOUNTER → 2025-05-14 20:56 | Emergency (ER) | payer OTHER ==
[~2025-05-14] VITALS: Ht 170.2 cm; Wt 79.1 kg
--- NOTE | 2025-05-14 22:10 | ED.PDOC ---
History of Present Illness HPI Comments 55 y/o F presents with c/c right lower leg and foot pain and swelling. Patient reports on returning to the ED after being found with a hairline fracture in her right leg s/p mechanical fall and injury on 05/10/25. She reports on onset of symptoms after having a splint placed on said leg. Pain is described as throbbing in quality. She denies any numbness, tingling, skin discoloration, or further acute symptoms. Chief Complaint: Lower Extremity Time Seen by MD: 21:45 Primary Care Provider: Dr. Adams Reviewed Notes: Nurses Notes, Medications, Allergies Allergies: Coded Allergies: Amoxicillin (Verified Allergy, Unknown, 12/24/16) Home Meds Active Scripts Docusate Sodium (Colace) 100 Mg Cap, 1 CAP PO BID, #30 CAP Prov:HONG VARELA PAC 07/28/22 Phenylephrine-Shark Liver Oil- (Hemorrhoidal Suppositorie 0.25-3-85.5 %) 1 Sup Sup, 1 SUP WA TID, #20 SUPP Prov:HONG VARELA PAC 07/28/22 Information Source: Patient Mode of Arrival: Ambulatory Severity: Moderate Timing: Days Duration: Since onset Prehospital treatment: Other (see HPI) Past Medical History PAST MEDICAL HISTORY: DM, GERD, High Lipids Past Medical History (Other): chronic back pain Surgical History: Hysterectomy CENTRIFUGAL EXTRACTOR OPERATOR History: No Pertinent CENTRIFUGAL EXTRACTOR OPERATOR History Family History Family History: Reviewed,noncontributory to illness, Family hx of DM, Family hx of heart sky, Family hx of HTN Social History Smoker: Non-Smoker Alcohol: Denies ETOH Use Drugs: Denies Drug Use Lives In: Home Constitutional: denies: chills, diaphoresis, fatigue, fever, malaise, sweats, weakness, others EENTM: denies: blurred vision, double vision, ear bleeding, ear discharge, ear drainage, ear pain, ear ringing, eye pain, eye redness, hearing loss, mouth pain, mouth swelling, nasal discharge, nose bleeding, nose congestion, nose pain, photophobia, tearing, throat pain, throat swelling, voice changes, others Respiratory: denies: cough, hemoptysis, orthopnea, SOB at rest, shortness of breath, SOB with excertion, stridor, wheezing, others Cardiovascular: denies: chest pain, dizzy spells, diaphoresis, Dyspnea on exertion, edema, irregular heart beat, left arm pain, lightheadedness, palpitations, PND, syncope, others Gastrointestinal: denies: abdomen distended, abdominal pain, blood streaked bowels, constipated, diarrhea, dysphagia, difficulty swallowing, hematemesis, melena, nausea, poor appetite, poor fluid intake, rectal bleeding, rectal pain, vomiting, others Genitourinary: denies: abnormal vagina bleeding, burning, dyspareunia, dysuria, flank pain, frequency, hematuria, incontinence, pain, , vagina discharge, urgency, others Neurological: denies: dizziness, fainting, headache, left sided numbness, left sided weakness, numbness, paresthesia, pre-existing deficit, right sided numbness, right sided weakness, seizure, speech problems, tingling, tremors, weakness, others Musculoskeletal: reports: others (right lower leg and foot pain and swelling ); denies: back pain, gout, joint pain, joint swelling, muscle pain, muscle stiffness, neck pain Integumetry: denies: bruises, change in color, change in hair/nails, dryness, laceration, lesions, lumps, rash, wounds, others Allergic/Immunocompromised: denies: Difficulty Healing, Frequent Infections, Hives, Itching, others Hematologic/Lymphatic: denies: anemia, blood clots, easy bleeding, easy bruising, swollen glands, others Endocrine: denies: excessive hunger, excessive sweating, excessive thirst, excessive urination, flushing, intolerance to cold, intolerance to heat, unexplained weight gain, unexplained weight loss, others Psychiatric: denies: anxiety, bipolar disorder, depression, hopeless, panic disorder, schizophrenia, sleepless, suicidal, others All Other Systems: Reviewed and Negative Physical Exam General Appearance: Mild Distress HEENT: Normal ENT Inspection, Pharynx Normal, TMs Normal Neck: Full Range of Motion, Non-Tender, Normal, Normal Inspection Respiratory: Chest Non-Tender, Lungs Clear, No Accessory Muscle Use, No Respiratory Distress, Normal Breath Sounds Cardiovascular: No Edema, No JVD, No Murmur, No Gallop, Normal Peripheral Pulses, Regular Rate/Rhythm Breast Exam: Deferred Gastrointestinal: No Organomegaly, Non Tender, No Pulsatile Mass, Normal Bowel Sounds, Soft Genitalia: Deferred Pelvic: Deferred Rectal: Deferred Extremities: No calf tenderness, Normal capillary refill, No pedal edema, Other (Left ankle in his stirrup splint but the patient states it is tight) Musculoskeletal : Apperance: Normal Neurologic: Alert, residential sales II-XII nml as Tested, No Motor Deficits, Normal Affect, Normal Mood, No Sensory Deficits Cerebellar Function: Normal Reflexes: Normal Skin: Dry, Normal Color, Warm Lymphatic: No Adenopathy Was a procedure done? Was a procedure done?: No Differential Dx Considerations may include: compartment syndrome X-Ray, Labs, Meds, VS Vital Signs Date Time Temp Pulse Resp B/P (MAP) Pulse Ox O2 Delivery O2 Flow Rate FiO2 05/14/25 20:57 97.5 86 18 141/89 96 97.5 The splint was removed and the patient had another stirrup splint placed The patient will continue to use the crutches Time of 1ST Reevaluation: 22:15 Reevaluation 1ST: Unchanged Patient Education/Counseling: Diagnosis, Treatment, Prognosis, Need For Follow Up Family Education/Counseling: No Family Present SEPSIS Sepsis Screen Date sepsis recognized/suspect: May 14, 2025 Time Sepsis recognized/suspect: 2056 Recent Procedure: No On Antibiotic Therapy: No Respiratory Rate >20: No Heart Rate >90: No Temp<36 C (96.8 F) or >38.3 C: No SBP <90 or MAP <65 mmHG: No New Acute Mental Status Change: No Is the patient on CPAP, BIPAP,: No Physician Orders Splints (05/14/25 21:48) Vital Signs Date Time Temp Pulse Resp B/P (MAP) Pulse Ox O2 Delivery O2 Flow Rate FiO2 05/14/25 20:57 97.5 86 18 141/89 96 97.5 Departure 1 Departure Time of Disposition: 22:16 Impression: Primary Impression: Nondisplaced fracture of left fibula Qualified Codes: S82.425D - Nondisplaced transverse fracture of shaft of left fibula, subsequent encounter for closed fracture with routine healing Disposition: 01 HOME / SELF CARE / HOMELESS Condition: Stable Discharged With: Self Critical Care Note Critical Care Time?: No Stability Stability form required: No Heart Score Heart Score: Heart Score Response (Comments) Value History N/A 0 EKG N/A 0 Age N/A 0 Risk Factors N/A 0 Troponin N/A 0 Total 0 I personally scribed for STACEY,GWYN B MD ([email or web address]) on 05/14/25 at 22:09. Electronically submitted by Justin Burks [email or web address]). GWYN IBARRA MD May 14, 2025 22:09
[2025-05-14 23:10] VITALS: BP 117/76; PULSE 71; RESP 20; TEMP 98.7; O2SAT 97
== END | disposition home or self-care (01) ==
LOC: ER 20:56
DX: S82.425A Nondisplaced transverse fracture of shaft of left fibula, initial encounter for closed fracture (principal); E11.9 Type 2 diabetes mellitus without complications; K21.9 Gastro-esophageal reflux disease without esophagitis; E78.5 Hyperlipidemia, unspecified; Z88.0 Allergy status to penicillin; Z90.710 Acquired absence of both cervix and uterus; W18.39XA Other fall on same level, initial encounter; Y93.89 Activity, other specified; Y92.89 Other specified places as the place of occurrence of the external cause; Y99.8 Other external cause status
CPT/HCPCS: 29515